=== PATIENT | female | born 1975 | race Caucasian/White ===

== ENCOUNTER 2018-07-27 11:11 | Day surgery (SDC) | payer OTHER ==
[~2018-07-27 11:11] MED LIST: Ketorolac 30 MG/ML SDV ONE; Midazolam 1 MG/ML 2 ML SDV ONE; Ondansetron 4 MG/2 ML SDV ONE; Propofol 200 MG/20 ML SDV ONE; Sodium Chloride 0.9% 10 ML Syringe FLUSH PRN; fentaNYL 100 MCG/2 ML SDV ONE
--- NOTE | 2018-07-27 11:31 | PCM.PREANE ---
Preanesthetic Assessment - Anesthesia/Transfusion/Family Hx Anesthesia History: Prior Anesthesia Without Reaction Family History of Anesthesia Reaction: No Transfusion History: No Prior Transfusion(s) - Physical Assessment NPO Status Date: 07/26/18 NPO Status Time: 10:00 Height: 1.7 m Weight: 65.317 kg ASA Class: 1 Mental Status: Alert & Oriented x3 Airway Class: Mallampati = 1 Dentition: Reports: Normal Dentition ROM/Head Extension: Full Lungs: Clear to Auscultation, Normal Respiratory Effort Cardiovascular: Regular Rate, Regular Rhythm, No Murmurs - Allergies Allergies/Adverse Reactions: Allergies Allergy/AdvReac Type Severity Reaction Status Date / Time No Known Allergies Allergy Verified 07/26/18 14:02 - Blood Product(s) Available: None - Anesthesia Plan Pre-Op Medication Ordered: None - Acknowledgements Anesthesia Type Planned: MAC Pt an Appropriate Candidate for the Planned Anesthesia: Yes Alternatives and Risks of Anesthesia Discussed w Pt/Guardian: Yes Pt/Guardian Understands and Agrees with Anesthesia Plan: Yes Additional Comments: Allerfic penicillin PreAnesthesia Questionnaire - Past Health History Medical/Surgical History: Denies Medical/Surgical History Cardiovascular History: Reports: None - Past Surgical History HEENT Surgical History: Reports: Tonsillectomy - HOME MEDS Home Medications: Home Meds . [No Known Home Meds] 07/26/18 [History] - CURRENT (IN HOUSE) MEDS Current Meds: Current Medications Lactated Ringer's (Ringers, Lactated) 1,000 mls @ 125 mls/hr IV ASDIRECTED OSITO Stop: 07/27/18 23:00 Lidocaine/Sodium Bicarbonate (Buffered Lidocaine 1% In Ns 8.4%) 0.25 ml IDERM ONETIME PRN PRN Reason: Prior to IV Start Stop: 07/27/18 18:00 Sodium Chloride (Saline Flush) 10 ml FLUSH ASDIRECTED PRN PRN Reason: Keep Vein Open Stop: 07/27/18 18:00 Discontinued Medications Fentanyl (Sublimaze) Confirm Administered Dose 100 mcg .ROUTE .STK-MED ONE Stop: 07/27/18 10:58 Ketorolac Tromethamine (Toradol) Confirm Administered Dose 30 mg .ROUTE .STK- MED ONE Stop: 07/27/18 11:00 Midazolam HCl (Versed 1 Mg/Ml) Confirm Administered Dose 2 mg .ROUTE .STK-MED ONE Stop: 07/27/18 10:58 Ondansetron HCl (Zofran) Confirm Administered Dose 4 mg .ROUTE .STK-MED ONE Stop: 07/27/18 11:00 Propofol (Diprivan 20 Ml) Confirm Administered Dose 200 mg .ROUTE .STK-MED ONE Stop: 07/27/18 10:58
[2018-07-27] MEDS: Lidocaine 1%/Sod Bicarbonate in NS 8.4% 1 ML Syringe IDERM PRN (11:35)
[2018-07-27] MEDS: Lactated Ringers 1,000 ML IV SCH (11:35)
[2018-07-27] MEDS ORDERED: Midazolam 1 MG/ML 2 ML SDV ONE (11:51)
[2018-07-27] MEDS ORDERED: ceFAZolin 1 GM Vial ONE ×2 (11:54)
[2018-07-27] MEDS ORDERED: Propofol 200 MG/20 ML SDV ONE (11:57)
[2018-07-27] MEDS ORDERED: Ibuprofen 600 MG Tab PO PRN (12:12)
--- NOTE | 2018-07-27 12:16 | PCM.OPNOTE ---
- General Post-Op/Procedure Note Date of Surgery/Procedure: 07/27/18 Operative Procedure(s): Dilation and suction curettage Findings: Uterus sounded to 13 cm. Endometrial curettings were consistent with approximately conception. No adnexal abnormalities were noted. Cervix was closed. There is no blood in the vaginal vault at the onset of the procedure. Pre Op Diagnosis: Miscarriage Post-Op Diagnosis: Same Anesthesia Technique: MAC Primary Surgeon: Riki Aquino Pathology: Endometrial curettings consistent with products of conception Fluid Replacement, Intraop: 900 EBL in mLs: 10 Complications: None Condition: Good Free Text/Narrative:: Surgery duration: 6 minutes The patient was taken to the operating room and placed in a supine position operating table. She received 2 g of Ancef preoperatively for infection prophylaxis and had sequential compression stockings in place for DVT prophylaxis. After adequate MAC was administered patient was placed in a dorsal lithotomy position. A weighted speculum was placed in the vagina. Cervix is found to be dilated to approximately 1 centimeters. Uterus was sounded to approximately 13 cm. It was found to be anterior and mid position. An 8 mm suction curette was then introduced in routine fashion the endometrial cavity was evacuated. Moderate amount tissue was obtained. Findings consistent with products of conception. A medium size sharp curet was introduced and very careful fashion the endometrial cavity was curetted. After curettage it appeared to be clear of any further tissue. The suction curet was then reintroduced and small of blood was removed. No further tissue was removed. This point the D&C was discontinued. The single-toothed tenaculum used to stabilize the anterior lip the cervix was removed. Blood was removed from the vagina with a stick sponge and the weighted speculum was removed from the vagina. MAC was reversed. The patient was discharged from the operating room in good condition.
--- NOTE | 2018-07-27 12:19 | PCM.POSTAN ---
POST ANESTHESIA ASSESSMENT - MENTAL STATUS Mental Status: Alert - RESPIRATORY Respiratory Status: Respiratory Rate WNL, Airway Patent, O2 Saturation Stable, Supplemental Oxygen - CARDIOVASCULAR CV Status: Pulse Rate WNL, Blood Pressure Stable - GASTROINTESTINAL GI Status: No Symptoms - POST OP HYDRATION Hydration Status: Adequate & Stable
--- NOTE | 2018-07-27 12:20 | PCM48HPAN ---
Post Anesthesia Note - EVALUATION WITHIN 48HRS OF ANESTHETIC Vital Signs in Normal Range: Yes Patient Participated in Evaluation: Yes Respiratory Function Stable: Yes Airway Patent: Yes Cardiovascular Function Stable: Yes Hydration Status Stable: Yes Pain Control Satisfactory: Yes Nausea and Vomiting Control Satisfactory: Yes Mental Status Recovered: Yes Resp Rate: 16
== END 2018-07-27 13:09 | disposition home or self-care (01) ==
LOC: JD.SDS 11:11
PROVIDERS: ATTEND Obstetrics & Gynecology
DX: O02.1 Missed abortion (principal); Z88.0 Allergy status to penicillin
CPT/HCPCS: 36415; 59820; 85025; 86850; 86900; 86901; J0690; J1885; J2250; J2405; J2704; J3010; J7120; 01965

== ENCOUNTER 2019-08-19 07:04 | Inpatient (IN) | payer OTHER ==
[2019-08-19] MEDS ORDERED: Sodium Chloride 0.9% 10 ML Syringe FLUSH PRN (07:18)
[2019-08-19] MEDS ORDERED: Lactated Ringers 1,000 ML IV SCH (07:30)
[2019-08-19] MEDS ORDERED: Oxytocin/Lactated Ringers 10 UNIT/1,000 ML BAG IV SCH (07:30)
[2019-08-19] MEDS ORDERED: Nalbuphine 10 MG/ML Syringe IVPUSH PRN (07:39)
[2019-08-19] MEDS: Clindamycin Phosphate in D5W 900 MG in Premix Bag 1 BAG IV SCH ×4 (08:30→16:00)
--- NOTE | 2019-08-19 13:54 | PCM.LDHP ---
<Esme Muñiz - Last Filed: 08/19/19 15:14> L&D History of Present Illness - General Date of Service: 08/19/19 Admit Problem/Dx: Patient Status Order with Admit Dx/Problem 08/19/19 07:18 Patient Status [ADT] Routine Admission Diagnosis/Problem Admission Diagnosis/Problem - History of Present Illness Introduction:: Gogo is a 44-year-old 6 para 4014 white female presenting at 39-1/7 weeks gestational age with an JENN of 08/25/2019 for elective induction of labor. Cervix upon admission is 2cm, 70% effaced, very soft, mid position, and -3 station. Procedure of induction of labor, its risks, benefits, alternatives of care were discussed in detail with the patient and her . They appear to understand and wish to proceed. [employer] CLE[employer]ER history: Onset of menarche for patient is unknown. She had cycles every 29 days. She was not using any control at time of conception. Her JENN of 08/25/2019 was set by a certain last menstrual period starting 11/18/2018. It was supported by 4 ultrasounds done during on 02/07/2019, 04/08/2019, 05/06/2019, and 06/03/2019. The 3 most recent ultrasounds were significant for internal debris in stomach. Patient denies any abnormal Pap smears, STIs, or other abnormalities. Her previous pregnancies include the followin. Female born 07/11/1999 at 39 weeks gestational age after 16 hours of labor - 6lbs 14oz in [place], [place]. Child's name is Nara. 2. Female infant born [birth year]2002 at 40 weeks gestational age after 8 hours of labor - 7lbs 0oz in [place], [place]. Child's name is Alejandra. 3. Male infant born 01/13/2003 at 40 weeks gestational age after 6 hours of labor - 7lbs 2oz in [place]. Child's name is Landon. 4. Male born 07/06/2007 at 40 weeks gestational age after 2 hours of labor. - 9lbs 0oz in [place]. Child's name is Donald. 5. Miscarriage 06/05/2018 at 6 weeks gestational age. D&C done for evacuation of the uterus. course: Patient was seen for first visit on 02/07/2019. Ultrasound done at that time showed a viable at 11-4/7 weeks gestational age. Ultrasound JENN correlated well with her LMP. She was seen on a very regular basis throughout the . Her vital signs remained stable and fundal height growth was appropriate throughout . Her weight gain was from 146 to 171.6 pounds for a 25.6 pound increase. Patient's group B strep screen was positive with sensitivity indicating that it is sensitive to clindamycin. Patient has been on and calcium supplements as well as iron 325mg tabs. Patient declined flu vaccine and genetic testing. She desires natural labor. She plans to breastfeed. Laboratory testing in : Blood is O+ with a negative antibody screen. Hemoglobin is 13.5g/dL and platelets are 284,000 at first visit. Rubella titer showed immunity. RPR nonreactive. Urine culture was suggestive of contamination. Hepatitis B surface antigen and HIV assays were both negative. Chlamydia and gonorrhea tests were negative. Second trimester hemoglobin was 12.4g/dL and platelets were 234,000. 1 hour GTT was normal at 91. Group B strep culture was positive on 08/07/2019 showing susceptibility to vancomycin and clindamycin. - Related Data Allergies/Adverse Reactions: Allergies Allergy/AdvReac Type Severity Reaction Status Date / Time penicillin G Allergy Cannot Verified 08/19/19 07:18 Remember Home Medications: Home Meds Calcium Carbonate/Vitamin D3 [Calcium 500 + Vit D 400] 1 tab PO DAILY 08/19/19 [History] Ferrous Sulfate [Iron] 325 mg PO DAILY 08/19/19 [History] Lactobacillus Combo No.10 [Probiotic] 1 tab PO DAILY 08/19/19 [History] Pnv No.95/Ferrous Fum/Folic AC [ Tablet] 1 each PO DAILY 08/19/19 [History] Past Medical History - Past Health History Medical/Surgical History: Denies Medical/Surgical History Cardiovascular History: Reports: None [employer] History: Reports: , Spontaneous - Past Surgical History HEENT Surgical History: Reports: Tonsillectomy Social & Family History - Family History Family Medical History: Noncontributory - Tobacco Use Smoking Status *Q: Never Smoker Second Hand Smoke Exposure: No - Caffeine Use Caffeine Use: Reports: None - Recreational Drug Use Recreational Drug Use: No H&P Review of Systems - Review of Systems: General: Reports: No Symptoms HEENT: Reports: No Symptoms Pulmonary: Reports: No Symptoms Cardiovascular: Reports: No Symptoms Gastrointestinal: Reports: No Symptoms Musculoskeletal: Reports: No Symptoms Skin: Reports: No Symptoms L&D Exam - Vital Signs Vital Signs: Last Vital Signs Temp 98.8 F 08/19/19 07:30 Pulse 79 08/19/19 07:30 Resp 16 08/19/19 07:30 BP 108/69 08/19/19 07:30 Pulse Ox 100 08/19/19 07:30 Weight: 79.379 kg - Exam Psychiatric Exam Comments: In general, patient is a well-developed, well-nourished female of stated age in no acute distress. On last evaluation, patient's blood pressure was 106/64, weight was 171.6 pounds, heart rate was 144. Pre- BMI was 22.1. Height is 5 feet 7 inches. Skin is warm and dry without lesions. HEENT and neck within normal limits. Lungs clear to auscultation in all lung parks. Cardiovascular exam shows regular rate and rhythm without murmurs. No peripheral edema. Abdomen has fundal height of 39cm. Baby is in vertex position. Neurological exam is grossly within normal limits. Orders Last 24hrs: Active Orders 24 hr Category Date Time Status Patient Status [ADT] Routine ADT 08/19/19 07:18 Active Communication Order [RC] ASDIRECTED Care 08/19/19 07:18 Active Communication Order [RC] ASDIRECTED Care 08/19/19 07:18 Active Communication Order [RC] ASDIRECTED Care 08/19/19 07:18 Active Monitoring [RC] INTERMITTENT Care 08/19/19 07:18 Active Non Stress Test [RC] PER UNIT ROUTINE Care 08/19/19 07:18 Active Notify Provider [RC] ASDIRECTED Care 08/19/19 07:18 Active Peripheral IV Care [RC] . DIRECTED Care 08/19/19 07:19 Active Vaginal Exam [RC] ASDIRECTED Care 08/19/19 07:18 Active Vital Signs [RC] ASDIRECTED Care 08/19/19 07:18 Active Regular Diet [DIET] Diet 08/19/19 Breakfast Active RAPID PLASMA REAGIN,RPR [CHEM] Routine Lab 08/19/19 07:55 Received Clindamycin Phosphate in D5W [Cleocin in D5W] 900 mg Med 08/19/19 08:00 Active Premix Bag 1 bag IV Q8H Lactated Ringers [Ringers, Lactated] 1,000 ml Med 08/19/19 07:30 Active IV ASDIRECTED Nalbuphine [Nubain] Med 08/19/19 07:39 Active 10 mg IVPUSH Q2H PRN Oxytocin/Lactated Ringers [Pitocin in LR 10 Units/1,000 Med 08/19/19 07:30 Active ML] 10 unit in 1,000 ml IV TITRATE Sodium Chloride 0.9% [Saline Flush] Med 08/19/19 07:18 Active 10 ml FLUSH ASDIRECTED PRN Peripheral IV Insertion Adult [OM.PC] Routine Oth 08/19/19 07:18 Ordered Medication Orders Oxytocin/Lactated Ringer's (Pitocin In Lr 10 Units/1,000 Ml) 10 unit in 1,000 mls @ 12 mls/hr IV TITRATE OSITO; Protocol Last Titration: 08/19/19 09:15 Dose: 6 munits/min, 36 mls/hr Documented by: MARCO A Titration: 08/19/19 08:45 Dose: 4 munits/min, 24 mls/hr Documented by: MARCO A Admin: 08/19/19 08:01 Dose: 2 munits/min, 12 mls/hr Documented by: MARCO A Lactated Ringer's (Ringers, Lactated) 1,000 mls @ 40 mls/hr IV ASDIRECTED OSITO Last Admin: 08/19/19 08:01 Dose: 40 mls/hr Documented by: MARCO A Clindamycin Phosphate 900 mg/ (Premix) 50 mls @ 100 mls/hr IV Q8H OSITO Last Admin: 08/19/19 08:30 Dose: 100 mls/hr Documented by: ALISSAKAJUAN CARLOS Nalbuphine HCl (Nubain) 10 mg IVPUSH Q2H PRN PRN Reason: Pain Sodium Chloride (Saline Flush) 10 ml FLUSH ASDIRECTED PRN PRN Reason: Keep Vein Open Assessment/Plan Comment:: Assessment: 1. female at 39-1/7 weeks gestation 2. group B strep positive - susceptible to clindamycin - patient has penicillin allergy 3. induction of labor by Pitocin and AROM 4. risk factors: mother's age, distance from hospital, group B strep status 5. patient okay with epidural Plan: 1. induction of labor via Pitocin and AROM 2. epidural PRN as patient wishes 3. patient plans to breastfeed 4. group B strep prophylaxis with antibiotics <Riki Aquino F - Last Filed: 08/19/19 17:16> L&D History of Present Illness - General Admit Problem/Dx: Patient Status Order with Admit Dx/Problem 08/19/19 07:18 Patient Status [ADT] Routine Admission Diagnosis/Problem Admission Diagnosis/Problem H&P Review of Systems - Review of Systems: Review Of Systems: See Below L&D Exam - Exam Exam: See Below - Vital Signs Vital Signs: Last Vital Signs Temp 37.1 C 08/19/19 07:30 Pulse 79 08/19/19 07:30 Resp 16 08/19/19 07:30 BP 108/69 08/19/19 07:30 Pulse Ox 100 08/19/19 07:30 Problem List Initiated/Reviewed/Updated: Yes Orders Last 24hrs: Active Orders 24 hr Category Date Time Status Patient Status [ADT] Routine ADT 08/19/19 07:18 Active Communication Order [RC] ASDIRECTED Care 08/19/19 07:18 Active Communication Order [RC] ASDIRECTED Care 08/19/19 07:18 Active Communication Order [RC] ASDIRECTED Care 08/19/19 07:18 Active Monitoring [RC] INTERMITTENT Care 08/19/19 07:18 Active Non Stress Test [RC] PER UNIT ROUTINE Care 08/19/19 07:18 Active Notify Provider [RC] ASDIRECTED Care 08/19/19 07:18 Active Peripheral IV Care [RC] . DIRECTED Care 08/19/19 07:19 Active Vaginal Exam [RC] ASDIRECTED Care 08/19/19 07:18 Active Vital Signs [RC] ASDIRECTED Care 08/19/19 07:18 Active Regular Diet [DIET] Diet 08/19/19 Breakfast Active RAPID PLASMA REAGIN,RPR [CHEM] Routine Lab 08/19/19 07:55 Received Clindamycin Phosphate in D5W [Cleocin in D5W] 900 mg Med 08/19/19 08:00 Active Premix Bag 1 bag IV Q8H Lactated Ringers [Ringers, Lactated] 1,000 ml Med 08/19/19 07:30 Active IV ASDIRECTED Nalbuphine [Nubain] Med 08/19/19 07:39 Active 10 mg IVPUSH Q2H PRN Oxytocin/Lactated Ringers [Pitocin in LR 10 Units/1,000 Med 08/19/19 07:30 Active ML] 10 unit in 1,000 ml IV TITRATE Sodium Chloride 0.9% [Saline Flush] Med 08/19/19 07:18 Active 10 ml FLUSH ASDIRECTED PRN Peripheral IV Insertion Adult [OM.PC] Routine Oth 08/19/19 07:18 Ordered Medication Orders Oxytocin/Lactated Ringer's (Pitocin In Lr 10 Units/1,000 Ml) 10 unit in 1,000 mls @ 12 mls/hr IV TITRATE OSITO; Protocol Last Titration: 08/19/19 09:15 Dose: 6 munits/min, 36 mls/hr Documented by: MARCO A Titration: 08/19/19 08:45 Dose: 4 munits/min, 24 mls/hr Documented by: MARCO A Admin: 08/19/19 08:01 Dose: 2 munits/min, 12 mls/hr Documented by: MARCO A Lactated Ringer's (Ringers, Lactated) 1,000 mls @ 40 mls/hr IV ASDIRECTED OSITO Last Admin: 08/19/19 08:01 Dose: 40 mls/hr Documented by: MARCO A Clindamycin Phosphate 900 mg/ (Premix) 50 mls @ 100 mls/hr IV Q8H OSITO Last Admin: 08/19/19 16:00 Dose: 100 mls/hr Documented by: MARCO A Infusion: 08/19/19 09:00 Dose: 100 mls/hr Documented by: MARCO A Admin: 08/19/19 08:30 Dose: 100 mls/hr Documented by: MARCO A Nalbuphine HCl (Nubain) 10 mg IVPUSH Q2H PRN PRN Reason: Pain Sodium Chloride (Saline Flush) 10 ml FLUSH ASDIRECTED PRN PRN Reason: Keep Vein Open
--- NOTE | 2019-08-19 17:26 | PCM.SN.2 ---
- Free Text/Narrative Note: Delivery note: Gogo is a 44-year-old 6 para 4014 white female presenting at 39-1/7 weeks gestational age with an JENN of 08/25/2019 for elective induction of labor.The patient underwent Pitocin induction of labor and after approximately 4 hours brought the head down well against the cervix. Artificial rupture membranes was then undertaken with resultant clear amniotic fluid. After this the contraction pattern progressed with intensity and frequency of labor increasing. The patient progressed to complete cervical dilation by approximately 1700 hrs. She pushed over just 2 contractions and at 1700 hrs. on 08/19/2019 delivered a viable, coleman, female infant with Apgars 8/9, a length of 19.0 inches and a weight of 3470 g grams (7 pounds, 10 ounces) in a right occiput anterior position over an intact perineum. Baby was placed on mom's abdomen, was dried with a warm blanket and had nose and mouth bulb suctioned. Pitocin was increased to 500 mL IV per hour to facilitate increased uterine tone and decrease likelihood of bleeding. Cord was obtained. The umbilical cord had 3 vessels within it. The placenta delivered at 1706 hrs. in a Hall presentation. It appeared intact and complete and was discarded per patient desire. Estimated blood loss was approximately 100 mL. Patient plans to breast-feed. Condition: Good
[2019-08-19] MEDS ORDERED: Acetaminophen 325 MG Tab PO PRN (18:15)
[2019-08-19] MEDS ORDERED: Witch Hazel Medicated Pads 40/Jar TOP PRN (18:15)
[2019-08-19] MEDS ORDERED: Benzocaine/Menthol 20%-0.5% Spray 56 GM Canister TOP PRN (18:15)
[2019-08-19] MEDS ORDERED: Docusate Sodium 100 MG Cap PO PRN (18:15)
[2019-08-19] MEDS: Ibuprofen 600 MG Tab PO PRN ×2 (18:36→22:41)
[2019-08-20] MEDS: Ibuprofen 600 MG Tab PO PRN ×3 (03:19→12:09)
[2019-08-20] MEDS: Prenatal Multivitamin with Calcium/Folic Acid/Iron Tab PO SCH (09:25)
[2019-08-21] MEDS: Ibuprofen 600 MG Tab PO PRN (03:07)
--- NOTE | 2019-08-21 05:46 | PCM.DCSUM1 ---
Discharge Summary - Hospital Course Free Text/Narrative:: Gogo is a 44-year-old 6 para 4014 white female presenting at 39-1/7 weeks gestational age with an JENN of 08/25/2019 for elective induction of labor.The patient underwent Pitocin induction of labor and after approximately 4 hours brought the head down well against the cervix. Artificial rupture membranes was then undertaken with resultant clear amniotic fluid. After this the contraction pattern progressed with intensity and frequency of labor inc reasing. The patient progressed to complete cervical dilation by approximately 1700 hrs. She pushed over just 2 contractions and at 1700 hrs. on 08/19/2019 delivered a viable, co[place], female with Apgars 8/9, a length of 19.0 inches and a weight of 3470 g grams (7 pounds, 10 ounces) in a right occiput anterior position over an intact perineum. Baby was placed on mom's abdomen, was dried with a warm blanket and had nose and mouth bulb suctioned. Pitocin was increased to 500 mL IV per hour to facilitate increased uterine tone and decrease likelihood of bleeding. Cord was obtained. The umbilical cord had 3 vessels within it. The placenta delivered at 1706 hrs. in a Hall presentation. It appeared intact and complete and was discarded per patient desire. Estimated blood loss was approximately 100 mL. patient is doing fine. Breast-feeding is going well. Follow-up of the ultrasound finding of debris in the stomach showed no abnormalities. Babies been eating well. Mother has minimal lochia, is voiding well and is ambulating without concerns. She is desiring discharge home today. Condition: Good Diagnosis: Stroke: No - Discharge Data Discharge Date: 08/21/19 Discharge Disposition: Home, Self-Care 01 Condition: Good - Referral to Home Health Primary Care Physician: Riki Aquino MD - Patient Instructions Diet: Regular Diet as Tolerated (Nursing diet with increased calories and calcium as recommended) Activity: As Tolerated (No intercourse or tampons until bleeding resolves) Driving: May Drive Today Showering/Bathing: May Shower (May take a bath) Notify Provider of: Fever, Increased Pain, Swelling and Redness, Nausea and/or Vomiting - Discharge Plan Home Medications: Home Meds Calcium Carbonate/Vitamin D3 [Calcium 500 + Vit D 400] 1 tab PO DAILY 08/19/19 [History] Ferrous Sulfate [Iron] 325 mg PO DAILY 08/19/19 [History] Lactobacillus Combo No.10 [Probiotic] 1 tab PO DAILY 08/19/19 [History] Pnv No.95/Ferrous Fum/Folic AC [ Tablet] 1 each PO DAILY 08/19/19 [History] Acetaminophen [Tylenol] 650 mg PO Q4H PRN tablet 08/21/19 [Rx] Ibuprofen [Motrin] 600 mg PO Q4H PRN tablet 08/21/19 [Rx] Referrals: Riki Aquino MD [Primary Care Provider] - (Return to clinic�Dr. Aquino or Ramonita woods nurse practitioner�2-4 weeks.) - Discharge Summary/Plan Comment DC Time >30 min.: No Discharge Summary/Plan Comment: Discharge instructions: 1. Discharge home 2. Diet, activity and follow-up discussed with patient. Recommend nursing diet with increased calories and calcium. 3. Precautions given concern increased pain, bleeding, temperature, signs/symptoms of DVT/PE. 4. Medications per home medication was printed, discussed with and given to the patient. 5. [facility] Aquino [facility]. Diagnosis: Term -delivered Condition: Good - Patient Data Vitals - Most Recent: Last Vital Signs Temp 36.7 C 08/21/19 03:09 Pulse 50 L 08/21/19 03:09 Resp 16 08/21/19 03:09 BP 115/70 08/21/19 03:09 Pulse Ox 96 08/21/19 03:09 Weight - Most Recent: 79.379 kg I&O - Last 24 hours: Intake & Output 08/20/19 08/20/19 08/21/19 14:59 22:59 06:59 Intake Total 120 240 Balance 120 240 Med Orders - Current: Current Medications Acetaminophen (Tylenol) 650 mg PO Q4H PRN PRN Reason: mild pain or fever Benzocaine/Menthol (Dermoplast Pain Relief [place]) 0 gm TOP ASDIRECTED PRN PRN Reason: Perineal Comfort Measure Last Admin: 08/19/19 18:37 Dose: 1 can Documented by: Docusate Sodium (Colace) 100 mg PO BID PRN PRN Reason: Constipation Last Admin: 08/21/19 03:07 Dose: 100 mg Documented by: Ibuprofen (Motrin) 600 mg PO Q4H PRN PRN Reason: Mild pain or fever Last Admin: 08/21/19 03:07 Dose: 600 mg Documented by: Luisa Multivit/[place]/Iron/Folic Ac ( Plus Iron) 1 each PO DAILY OSITO Last Admin: 08/20/19 09:25 Dose: 1 each Documented by: Bossman Robles ([facility]) 1 pad TOP ASDIRECTED PRN PRN Reason: Perineal Comfort Measure Last Admin: 08/19/19 18:37 Dose: 1 tub Documented by: Discontinued Medications Oxytocin/Lactated Ringer's (Pitocin In Lr 10 Units/1,000 Ml) 10 unit in 1,000 mls @ 12 mls/hr IV TITRATE OSITO; Protocol Last Titration: 08/19/19 17:45 Dose: 41.67 munits/min, 250.02 mls/hr Documented by: Lactated Ringer's (Ringers, Lactated) 1,000 mls @ 40 mls/hr IV ASDIRECTED OSITO Last Admin: 08/19/19 08:01 Dose: 40 mls/hr Documented by: Clindamycin Phosphate 900 mg/ (Premix) 50 mls @ 100 mls/hr IV Q8H OSITO Last Admin: 08/19/19 16:00 Dose: 100 mls/hr Documented by: Nalbuphine HCl (Nubain) 10 mg IVPUSH Q2H PRN PRN Reason: Pain Sodium Chloride (Saline Flush) 10 ml FLUSH ASDIRECTED PRN PRN Reason: Keep Vein Open
[2019-08-21] MEDS: Prenatal Multivitamin with Calcium/Folic Acid/Iron Tab PO SCH (14:48)
== END 2019-08-21 11:40 | disposition home or self-care (01) | DRG 807 ==
LOC: JD.OB 07:04 → OBSVTOIN 17:00 → JD.OB 17:01
PROVIDERS: ADMIT Obstetrics & Gynecology; ATTEND Obstetrics & Gynecology
PROC: 10E0XZZ Delivery of Products of Conception, External Approach (ICD-10-PCS; principal; 2019-08-19)
PROC: 10907ZC Drainage of Amniotic Fluid, Therapeutic from Products of Conception, Via Natural or Artificial Opening (ICD-10-PCS; 2019-08-19)
PROC: 3E033VJ Introduction of Other Hormone into Peripheral Vein, Percutaneous Approach (ICD-10-PCS; 2019-08-19)
DX: O99.824 Streptococcus B carrier state complicating childbirth (principal); Z37.0 Single live birth; Z3A.39 39 weeks gestation of pregnancy
CPT/HCPCS: 36415; 59025; 59409; 86592; A9270-GY; J2590; J3490; J7120

== ENCOUNTER 2019-08-30 16:06 | Day surgery (SDC) | payer OTHER ==
[2019-08-30] MEDS ORDERED: Sodium Chloride 0.9% 10 ML Syringe FLUSH PRN (16:47)
--- NOTE | 2019-08-30 16:51 | EDM.PDOC ---
ED HPI GENERAL MEDICAL PROBLEM - General Chief Complaint: Abdominal Pain Stated Complaint: R SIDE ABDOMINAL PAIN/ 1 WEEK Time Seen by Provider: 08/30/19 16:48 Source of Information: Reports: Patient History Limitations: Reports: No Limitations - History of Present Illness INITIAL COMMENTS - FREE TEXT/NARRATIVE: Is an unfortunate 44-year-old female who presents emergency department today with complaint of right lower quadrant abdominal pain. Patient reports that she is status post 1 week [address] delivery by [address] Aquino, and has had pain of the right lower quadrant ever since. The patient reports that the pain is worsened today and she reports that the pain is a crampy type pain that is worse with range of motion at which time the pain becomes sharp. Does have bright red blood lochia denies dysuria no frequency no fever no chills no chest pain no shortness of breath no nausea no vomiting tolerating p.o. food and fluids well Treatments PRINCIPAL TECHNICAL SPECIALIST: Reports: Other (see below) Other Treatments PRINCIPAL TECHNICAL SPECIALIST: motrin Right Abdomen Pain Score (Numeric/FACES): 4 - Related Data Allergies Allergy/AdvReac Type Severity Reaction Status Date / Time penicillin G Allergy Cannot Verified 08/19/19 07:18 Remember Home Meds: Home Meds Calcium Carbonate/Vitamin D3 [Calcium 500 + Vit D 400] 1 tab PO DAILY 08/19/19 [History] Ferrous Sulfate [Iron] 325 mg PO DAILY 08/19/19 [History] Lactobacillus Combo No.10 [Probiotic] 1 tab PO DAILY 08/19/19 [History] Pnv No.95/Ferrous Fum/Folic AC [ Tablet] 1 each PO DAILY 08/19/19 [History] Acetaminophen [Tylenol] 650 mg PO Q4H PRN tablet 08/21/19 [Rx] Ibuprofen [Motrin] 600 mg PO Q4H PRN tablet 08/21/19 [Rx] Past Medical History - Past Health History Medical/Surgical History: Denies Medical/Surgical History Cardiovascular History: Reports: None 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 Denies: Melena, Nausea, Vomiting : Reports: Other (+ Bright red lochia) ED EXAM, GI/ABD - Physical Exam Exam: See Below Exam Limited By: No Limitations General Appearance: Alert, WD/WN, Mild Distress Throat/Mouth: Normal Inspection, Normal Lips, Normal Teeth, Normal Gums, Normal Oropharynx, Normal Voice, No Airway Compromise Neck: Normal Inspection, Supple, Non-Tender, Full Range of Motion Respiratory/Chest: No Respiratory Distress, Lungs Clear, Normal Breath Sounds, No Accessory Muscle Use, Chest Non-Tender Cardiovascular: Normal Peripheral Pulses, Regular Rate, Rhythm, No Edema, No Gallop, No JVD, No Murmur, No Rub GI/Abdominal Exam: Normal Bowel Sounds, Soft, Tender (mild RLQ) Back Exam: Normal Inspection, Full Range of Motion, NT Extremities: Normal Inspection, No Pedal Edema Neurological: Alert, Oriented Skin Exam: Warm, Dry Course - Vital Signs Last Recorded V/S: Last Vital Signs Temp 98.4 F 08/30/19 16:37 Pulse 64 08/30/19 16:37 Resp 20 08/30/19 16:37 BP 112/78 08/30/19 16:37 Pulse Ox 97 08/30/19 16:37 - Orders/Labs/Meds Orders: Active Orders 24 hr Category Date Time Status Abdomen Pelvis wo Cont [CT] Stat Exams 08/30/19 16:47 Taken CBC WITH AUTO DIFF [HEME] Stat Lab 08/30/19 16:55 Results COMPREHENSIVE METABOLIC PN,CMP [CHEM] Stat Lab 08/30/19 16:55 Received CULTURE URINE [RM] Stat Lab 08/30/19 17:00 Received Sodium Chloride 0.9% [Saline Flush] Med 08/30/19 16:47 Active 10 ml FLUSH ASDIRECTED PRN Saline Lock Insert [OM.PC] Stat Oth 08/30/19 16:46 Ordered Medication Orders Sodium Chloride (Saline Flush) 10 ml FLUSH ASDIRECTED PRN PRN Reason: Keep Vein Open Last Admin: 08/30/19 17:07 Dose: 10 ml Documented by: ELÍAS Labs: Laboratory Tests 08/30/19 08/30/19 Range/Units 16:55 17:00 WBC 11.96 H (3.98-10.04) K/mm3 RBC 5.02 (3.98-5.22) M/mm3 Hgb 15.3 D (11.2-15.7) gm/dl Hct 46.9 H (34.1-44.9) % MCV 93.4 (79.4-94.8) fl MCH 30.5 (25.6-32.2) pg MCHC 32.6 (32.2-35.5) g/dl RDW Std Deviation 45.3 (36.4-46.3) fL Plt Count 266 (182-369) K/mm3 MPV 9.9 (9.4-12.3) fl Neut % (Auto) 79.5 H (34.0-71.1) % Lymph % (Auto) 12.7 L (19.3-51.7) % [place] % (Auto) 5.8 (4.7-12.5) % Eos % (Auto) 1.6 (0.7-5.8) Baso % (Auto) 0.3 (0.1-1.2) % Neut # (Auto) 9.52 H (1.56-6.13) K/mm3 Lymph # (Auto) 1.52 (1.18-3.74) K/mm3 [place] # (Auto) 0.69 H (0.24-0.36) K/mm3 Eos # (Auto) 0.19 (0.04-0.36) K/mm3 Baso # (Auto) 0.03 (0.01-0.08) K/mm3 Urine Color Yellow (Yellow) Urine Appearance Clear (Clear) Urine pH 6.0 (5.0-8.0) Ur Specific [place] 1.020 (1.005-1.030) Urine Protein 1+ H (Negative) Urine Glucose (UA) Negative (Negative) Urine Ketones Negative (Negative) Urine Occult Blood 3+ H (Negative) Urine Nitrite Negative (Negative) Urine Bilirubin Negative (Negative) Urine Urobilinogen 0.2 (0.2-1.0) Ur Leukocyte Esterase 1+ H (Negative) Urine RBC 5-10 H (0-5) /hpf Urine WBC 10-20 H (0-5) /hpf Ur Squamous Epith Cells 20-30 H (0-5) /hpf Urine Bacteria Few (FEW) /hpf Urine Mucus Not seen (FEW) /hpf Meds: Medications Generic Name Dose Route Start Last Admin Trade Name Davidq PRN Reason Stop Dose Admin Sodium Chloride 10 ml 08/30/19 16:47 08/30/19 17:07 Saline Flush FLUSH 10 ml ASDIRECTED PRN Administration Keep Vein Open - Re-Assessments/Exams Free Text/Narrative Re-Assessment/Exam: 08/30/19 18:04 Urine shows 1+ leuk est and 10-20 WBCs Free Text/Narrative Re-Assessment/Exam: 08/30/19 18:[address] Garzon will come and see the patient expect to take the patient to the OR tonight at 1930, discussed with patient and family and they verbalized understanding Departure - Departure Time of Disposition: 18:17 Disposition: Refer to Observation Clinical Impression: Appendicitis Qualifiers: Appendicitis type: acute appendicitis Acute appendicitis type: unspecified acute appendicitis type Qualified Code(s): K35.80 - Unspecified acute appendicitis - Discharge Information Referrals: PCP,None [Primary Care Provider] - Forms: ED Department Discharge Sepsis Event Note (ED) - Evaluation Sepsis Screening Result: No Definite Risk - Focused Exam Vital Signs: Vital Signs Temp Pulse Resp BP Pulse Ox 08/30/19 16:37 98.4 F 64 20 112/78 97 - My Orders Last 24 Hours: My Active Orders 08/30/19 16:46 Saline Lock Insert [OM.PC] Stat 08/30/19 16:47 Abdomen Pelvis wo Cont [CT] Stat Sodium Chloride 0.9% [Saline Flush] 10 ml FLUSH ASDIRECTED PRN 08/30/19 16:55 CBC WITH AUTO DIFF [HEME] Stat COMPREHENSIVE METABOLIC PN,CMP [CHEM] Stat 08/30/19 17:00 CULTURE URINE [RM] Stat - Assessment/Plan Last 24 Hours: My Active Orders 08/30/19 16:46 Saline Lock Insert [OM.PC] Stat 08/30/19 16:47 Abdomen Pelvis wo Cont [CT] Stat Sodium Chloride 0.9% [Saline Flush] 10 ml FLUSH ASDIRECTED PRN 08/30/19 16:55 CBC WITH AUTO DIFF [HEME] Stat COMPREHENSIVE METABOLIC PN,CMP [CHEM] Stat 08/30/19 17:00 CULTURE URINE [RM] Stat
[2019-08-30] MEDS ORDERED: metroNIDAZOLE/Normal Saline 500 MG in Premix Bag 1 BAG IV ONE (18:18)
[2019-08-30] MEDS ORDERED: Levofloxacin/Dextrose 5%-Water 500 MG in Premix Bag 1 BAG IV ONE (18:18)
--- NOTE | 2019-08-30 19:16 | PCM.PREANE ---
Preanesthetic Assessment - Anesthesia/Transfusion/Family Hx Anesthesia History: Prior Anesthesia Without Reaction Transfusion History: No Prior Transfusion(s) - Review of Systems General: No Symptoms Pulmonary: No Symptoms Cardiovascular: No Symptoms Gastrointestinal: Abdominal Pain, Nausea Neurological: No Symptoms Other: Reports: None - Physical Assessment NPO Status Date: 08/30/19 NPO Status Time: 13:00 Vital Signs: Last Vital Signs Temp 98.4 F 08/30/19 16:37 Pulse 64 08/30/19 16:37 Resp 20 08/30/19 16:37 BP 112/78 08/30/19 16:37 Pulse Ox 97 08/30/19 16:37 Height: 1.7 m Weight: 68.946 kg ASA Class: 1E Mental Status: Alert & Oriented x3 Airway Class: Mallampati = 1 Dentition: Reports: Normal Dentition Thyro-Mental Finger Breadths: 3 Mouth Opening Finger Breadths: 3 ROM/Head Extension: Full Lungs: Clear to Auscultation, Normal Respiratory Effort Cardiovascular: Regular Rate, Regular Rhythm - Lab Values: Laboratory Last Values WBC 11.96 K/mm3 (3.98-10.04) H 08/30/19 16:55 RBC 5.02 M/mm3 (3.98-5.22) 08/30/19 16:55 Hgb 15.3 gm/dl (11.2-15.7) D 08/30/19 16:55 Hct 46.9 % (34.1-44.9) H 08/30/19 16:55 MCV 93.4 fl (79.4-94.8) 08/30/19 16:55 MCH 30.5 pg (25.6-32.2) 08/30/19 16:55 MCHC 32.6 g/dl (32.2-35.5) 08/30/19 16:55 RDW Std Deviation 45.3 fL (36.4-46.3) 08/30/19 16:55 Plt Count 266 K/mm3 (182-369) 08/30/19 16:55 MPV 9.9 fl (9.4-12.3) 08/30/19 16:55 Neut % (Auto) 79.5 % (34.0-71.1) H 08/30/19 16:55 Lymph % (Auto) 12.7 % (19.3-51.7) L 08/30/19 16:55 [place] % (Auto) 5.8 % (4.7-12.5) 08/30/19 16:55 Eos % (Auto) 1.6 (0.7-5.8) 08/30/19 16:55 Baso % (Auto) 0.3 % (0.1-1.2) 08/30/19 16:55 Neut # (Auto) 9.52 K/mm3 (1.56-6.13) H 08/30/19 16:55 Lymph # (Auto) 1.52 K/mm3 (1.18-3.74) 08/30/19 16:55 [place] # (Auto) 0.69 K/mm3 (0.24-0.36) H 08/30/19 16:55 Eos # (Auto) 0.19 K/mm3 (0.04-0.36) 08/30/19 16:55 Baso # (Auto) 0.03 K/mm3 (0.01-0.08) 08/30/19 16:55 Manual Slide Review Normal smear 08/30/19 16:55 Sodium 140 mEq/L (136-145) 08/30/19 16:55 Potassium 3.9 mEq/L (3.5-5.1) 08/30/19 16:55 Chloride 105 mEq/L (98-107) 08/30/19 16:55 Carbon Dioxide 27 mEq/L (21-32) 08/30/19 16:55 Anion Gap 11.9 (5-15) 08/30/19 16:55 BUN 16 mg/dL (7-18) 08/30/19 16:55 Creatinine 0.8 mg/dL (0.55-1.02) 08/30/19 16:55 Est Cr Clr Drug Dosing 88.18 mL/min 08/30/19 16:55 Estimated GFR (MDRD) > 60 mL/min (>60) 08/30/19 16:55 BUN/Creatinine Ratio 20.0 (14-18) H 08/30/19 16:55 Glucose 88 mg/dL (74-106) 08/30/19 16:55 Calcium 9.7 mg/dL (8.5-10.1) 08/30/19 16:55 Total Bilirubin 1.9 mg/dL (0.2-1.0) H 08/30/19 16:55 AST 21 U/L (15-37) 08/30/19 16:55 ALT 44 U/L (14-59) 08/30/19 16:55 Alkaline Phosphatase 109 U/L (46-116) 08/30/19 16:55 Total Protein 6.9 g/dl (6.4-8.2) 08/30/19 16:55 Albumin 3.4 g/dl (3.4-5.0) 08/30/19 16:55 Globulin 3.5 gm/dL 08/30/19 16:55 Albumin/Globulin Ratio 1.0 (1-2) 08/30/19 16:55 Urine Color Yellow (Yellow) 08/30/19 17:00 Urine Appearance Clear (Clear) 08/30/19 17:00 Urine pH 6.0 (5.0-8.0) 08/30/19 17:00 Ur Specific [place] 1.020 (1.005-1.030) 08/30/19 17:00 Urine Protein 1+ (Negative) H 08/30/19 17:00 Urine Glucose (UA) Negative (Negative) 08/30/19 17:00 Urine Ketones Negative (Negative) 08/30/19 17:00 Urine Occult Blood 3+ (Negative) H 08/30/19 17:00 Urine Nitrite Negative (Negative) 08/30/19 17:00 Urine Bilirubin Negative (Negative) 08/30/19 17:00 Urine Urobilinogen 0.2 (0.2-1.0) 08/30/19 17:00 Ur Leukocyte Esterase 1+ (Negative) H 08/30/19 17:00 Urine RBC 5-10 /hpf (0-5) H 08/30/19 17:00 Urine WBC 10-20 /hpf (0-5) H 08/30/19 17:00 Ur Squamous Epith Cells 20-30 /hpf (0-5) H 08/30/19 17:00 Urine Bacteria Few /hpf (FEW) 08/30/19 17:00 Urine Mucus Not seen /hpf (FEW) 08/30/19 17:00 - Allergies Allergies/Adverse Reactions: Allergies Allergy/AdvReac Type Severity Reaction Status Date / Time penicillin G Allergy Cannot Verified 08/19/19 07:18 Remember - Acknowledgements Anesthesia Type Planned: General Anesthesia Pt an Appropriate Candidate for the Planned Anesthesia: Yes Alternatives and Risks of Anesthesia Discussed w Pt/Guardian: Yes Pt/Guardian Understands and Agrees with Anesthesia Plan: Yes PreAnesthesia Questionnaire - Past Health History Medical/Surgical History: Denies Medical/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 History 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: , 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 - Past Surgical History HEENT Surgical History: Reports: Tonsillectomy Female Surgical History: Reports: Other (See Below) Other Female Surgeries/Procedures: vag delivery 08-19-19 - SUBSTANCE USE Smoking Status *Q: Never Smoker Recreational Drug Use History: No - HOME MEDS Home Medications: Home Meds Calcium Carbonate/Vitamin D3 [Calcium 500 + Vit D 400] 1 tab PO DAILY 08/19/19 [History] Ferrous Sulfate [Iron] 325 mg PO DAILY 08/19/19 [History] Lactobacillus Combo No.10 [Probiotic] 1 tab PO DAILY 08/19/19 [History] Pnv No.95/Ferrous Fum/Folic AC [ Tablet] 1 each PO DAILY 08/19/19 [History] Acetaminophen [Tylenol] 650 mg PO Q4H PRN tablet 08/21/19 [Rx] Ibuprofen [Motrin] 600 mg PO Q4H PRN tablet 08/21/19 [Rx] - CURRENT (IN HOUSE) MEDS Current Meds: Current Medications Metronidazole 500 mg/ Premix 100 mls @ 100 mls/hr IV ONETIME ONE Stop: 08/30/19 19:17 Last Admin: 08/30/19 18:37 Dose: 100 mls/hr Documented by: Levofloxacin/Dextrose 500 mg/ (Premix) 100 mls @ 100 mls/hr IV ONETIME ONE Stop: 08/30/19 19:17 Sodium Chloride (Saline Flush) 10 ml FLUSH ASDIRECTED PRN PRN Reason: Keep Vein Open Last Admin: 08/30/19 17:07 Dose: 10 ml Documented by: Discontinued Medications Bupivacaine HCl/Epinephrine Bitart (Marcaine 0.5%/Epinephrine 1:200,000) Confirm Administered Dose 50 ml .ROUTE .STK-MED ONE Stop: 08/30/19 18:52 Lidocaine/Epinephrine (Xylocaine 1% With Epinephrine 1:100,000) Confirm Administered Dose 40 ml .ROUTE .STK-MED ONE Stop: 08/30/19 18:52
[2019-08-30] MEDS: Bupivacaine 0.5%/EPINEPHrine 1:200,000 50 ML MDV ONE ×2 (19:21→20:05)
[2019-08-30] MEDS: Lidocaine 1% with EPINEPHrine 1:100,000 20 ML MDV ONE ×2 (19:22→20:05)
[2019-08-30] MEDS ORDERED: Propofol 200 MG/20 ML SDV ONE (19:22)
[2019-08-30] MEDS ORDERED: Rocuronium 50 MG/5 ML Vial ONE (19:22)
[2019-08-30] MEDS ORDERED: Midazolam 1 MG/ML 2 ML SDV ONE (19:22)
[2019-08-30] MEDS ORDERED: fentaNYL 250 MCG/5 ML SDV ONE (19:23)
[2019-08-30] MEDS ORDERED: Succinylcholine/Sod PF 100 MG/5 ML SYRINGE IV ONE (19:27)
[2019-08-30] MEDS ORDERED: Ondansetron 4 MG/2 ML SDV ONE (19:29)
[2019-08-30] MEDS ORDERED: Dexamethasone 4 MG/ML 5 ML MDV ONE (19:30)
--- NOTE | 2019-08-30 19:50 | PCM.HP.2 ---
H&P History of Present Illness - General Date of Service: 08/30/19 Admit Problem/Dx: Admission Diagnosis/Problem Admission Diagnosis/Problem Acute appendicitis Source of Information: Patient, Provider History Limitations: Reports: No Limitations - History of Present Illness Initial Comments - Free Text/Narative: The patient is a 44-year-old female who presents with right lower quadrant abdominal pain for the past week. Is suddenly worsened and today became severe enough that she came in to seek treatment. She has had looser and more frequent stools. She reports decreased appetite. She denies any fever. She is 7 days status post a vaginal delivery of a female infant. She is breast- feeding at this time. In the emergency department she had work-up with laboratory and CT evaluation. She has an elevated white blood cell count of 11.9K. She also had a CT abdome n/pelvis findings of a dilated appendix with a fecalith. Right Abdomen Pain Score (Numeric/FACES): 4 - Related Data Allergies/Adverse Reactions: Allergies Allergy/AdvReac Type Severity Reaction Status Date / Time penicillin G Allergy Cannot Verified 08/19/19 07:18 Remember Home Medications: Home Meds Calcium Carbonate/Vitamin D3 [Calcium 500 + Vit D 400] 1 tab PO DAILY 08/19/19 [History] Ferrous Sulfate [Iron] 325 mg PO DAILY 08/19/19 [History] Lactobacillus Combo No.10 [Probiotic] 1 tab PO DAILY 08/19/19 [History] Pnv No.95/Ferrous Fum/Folic AC [ Tablet] 1 each PO DAILY 08/19/19 [History] Acetaminophen [Tylenol] 650 mg PO Q4H PRN tablet 08/21/19 [Rx] Ibuprofen [Motrin] 600 mg PO Q4H PRN tablet 08/21/19 [Rx] Past Medical History - Past Health History Medical/Surgical History: Denies Medical/Surgical History Cardiovascular History: Reports: None 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: , 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 - Past Surgical History HEENT Surgical History: Reports: Tonsillectomy Female Surgical History: Reports: Other (See Below) Other Female Surgeries/Procedures: vag delivery 08-19-19 Social & Family History - Family History Cardiac: Reports: High Cholesterol - Tobacco Use Smoking Status *Q: Never Smoker - Caffeine Use Caffeine Use: Reports: None - Recreational Drug Use Recreational Drug Use: No H&P Review of Systems - Review of Systems: Review Of Systems: See Below General: Reports: No Symptoms HEENT: Reports: No Symptoms Pulmonary: Reports: No Symptoms Cardiovascular: Reports: No Symptoms Gastrointestinal: Reports: Abdominal Pain, Decreased Appetite Genitourinary: Reports: No Symptoms Musculoskeletal: Reports: No Symptoms Skin: Reports: No Symptoms Neurological: Reports: No Symptoms Hematologic/Lymphatic: Reports: No Symptoms Exam - Exam Exam: See Below - Vital Signs Vital Signs: Last Vital Signs Temp 36.9 C 08/30/19 16:37 Pulse 64 08/30/19 16:37 Resp 20 08/30/19 16:37 BP 112/78 08/30/19 16:37 Pulse Ox 97 08/30/19 16:37 Weight: 68.946 kg - Exam Quality Assessment: No: Supplemental Oxygen General: Alert, Oriented HEENT: Conjunctiva Clear, EOMI Neck: Supple Lungs: Clear to Auscultation, Normal Respiratory Effort Cardiovascular: Regular Rate, Regular Rhythm GI/Abdominal Exam: Soft, No Distention, Tender (in RLQ) Extremities: Normal Inspection, No Pedal Edema Peripheral Pulses: 2+: Dorsalis Pedis (L), Dorsalis Pedis (R) Skin: Warm, Dry, Intact Neurological: Cranial Nerves Intact Neuro Extensive - Mental Status: Normal Mood/Affect - Patient Data Lab Results Last 24 hrs: Laboratory Results - last 24 hr 08/30/19 08/30/19 08/30/19 Range/Units 16:55 16:55 17:00 WBC 11.96 H (3.98-10.04) K/mm3 RBC 5.02 (3.98-5.22) M/mm3 Hgb 15.3 D (11.2-15.7) gm/dl Hct 46.9 H (34.1-44.9) % MCV 93.4 (79.4-94.8) fl MCH 30.5 (25.6-32.2) pg MCHC 32.6 (32.2-35.5) g/dl RDW Std Deviation 45.3 (36.4-46.3) fL Plt Count 266 (182-369) K/mm3 MPV 9.9 (9.4-12.3) fl Neut % (Auto) 79.5 H (34.0-71.1) % Lymph % (Auto) 12.7 L (19.3-51.7) % [place] % (Auto) 5.8 (4.7-12.5) % Eos % (Auto) 1.6 (0.7-5.8) Baso % (Auto) 0.3 (0.1-1.2) % Neut # (Auto) 9.52 H (1.56-6.13) K/mm3 Lymph # (Auto) 1.52 (1.18-3.74) K/mm3 [place] # (Auto) 0.69 H (0.24-0.36) K/mm3 Eos # (Auto) 0.19 (0.04-0.36) K/mm3 Baso # (Auto) 0.03 (0.01-0.08) K/mm3 Manual Slide Review Normal smear Sodium 140 (136-145) mEq/L Potassium 3.9 (3.5-5.1) mEq/L Chloride 105 (98-107) mEq/L Carbon Dioxide 27 (21-32) mEq/L Anion Gap 11.9 (5-15) BUN 16 (7-18) mg/dL Creatinine 0.8 (0.55-1.02) mg/dL Est Cr Clr Drug Dosing 88.18 mL/min Estimated GFR (MDRD) > 60 (>60) mL/min BUN/Creatinine Ratio 20.0 H (14-18) Glucose 88 (74-106) mg/dL Calcium 9.7 (8.5-10.1) mg/dL Total Bilirubin 1.9 H (0.2-1.0) mg/dL AST 21 (15-37) U/L ALT 44 (14-59) U/L Alkaline Phosphatase 109 (46-116) U/L Total Protein 6.9 (6.4-8.2) g/dl Albumin 3.4 (3.4-5.0) g/dl Globulin 3.5 gm/dL Albumin/Globulin Ratio 1.0 (1-2) Urine Color Yellow (Yellow) Urine Appearance Clear (Clear) Urine pH 6.0 (5.0-8.0) Ur Specific [place] 1.020 (1.005-1.030) Urine Protein 1+ H (Negative) Urine Glucose (UA) Negative (Negative) Urine Ketones Negative (Negative) Urine Occult Blood 3+ H (Negative) Urine Nitrite Negative (Negative) Urine Bilirubin Negative (Negative) Urine Urobilinogen 0.2 (0.2-1.0) Ur Leukocyte Esterase 1+ H (Negative) Urine RBC 5-10 H (0-5) /hpf Urine WBC 10-20 H (0-5) /hpf Ur Squamous Epith Cells 20-30 H (0-5) /hpf Urine Bacteria Few (FEW) /hpf Urine Mucus Not seen (FEW) /hpf SARS-CoV-2 RNA (RT-PCR) (NEGATIVE) 08/30/19 Range/Units 18:40 WBC (3.98-10.04) K/mm3 RBC (3.98-5.22) M/mm3 Hgb (11.2-15.7) gm/dl Hct (34.1-44.9) % MCV (79.4-94.8) fl MCH (25.6-32.2) pg MCHC (32.2-35.5) g/dl RDW Std Deviation (36.4-46.3) fL Plt Count (182-369) K/mm3 MPV (9.4-12.3) fl Neut % (Auto) (34.0-71.1) % Lymph % (Auto) (19.3-51.7) % [place] % (Auto) (4.7-12.5) % Eos % (Auto) (0.7-5.8) Baso % (Auto) (0.1-1.2) % Neut # (Auto) (1.56-6.13) K/mm3 Lymph # (Auto) (1.18-3.74) K/mm3 [place] # (Auto) (0.24-0.36) K/mm3 Eos # (Auto) (0.04-0.36) K/mm3 Baso # (Auto) (0.01-0.08) K/mm3 Manual Slide Review Sodium (136-145) mEq/L Potassium (3.5-5.1) mEq/L Chloride (98-107) mEq/L Carbon Dioxide (21-32) mEq/L Anion Gap (5-15) BUN (7-18) mg/dL Creatinine (0.55-1.02) mg/dL Est Cr Clr Drug Dosing mL/min Estimated GFR (MDRD) (>60) mL/min BUN/Creatinine Ratio (14-18) Glucose (74-106) mg/dL Calcium (8.5-10.1) mg/dL Total Bilirubin (0.2-1.0) mg/dL AST (15-37) U/L ALT (14-59) U/L Alkaline Phosphatase (46-116) U/L Total Protein (6.4-8.2) g/dl Albumin (3.4-5.0) g/dl Globulin gm/dL Albumin/Globulin Ratio (1-2) Urine Color (Yellow) Urine Appearance (Clear) Urine pH (5.0-8.0) Ur Specific [place] (1.005-1.030) Urine Protein (Negative) Urine Glucose (UA) (Negative) Urine Ketones (Negative) Urine Occult Blood (Negative) Urine Nitrite (Negative) Urine Bilirubin (Negative) Urine Urobilinogen (0.2-1.0) Ur Leukocyte Esterase (Negative) Urine RBC (0-5) /hpf Urine WBC (0-5) /hpf Ur Squamous Epith Cells (0-5) /hpf Urine Bacteria (FEW) /hpf Urine Mucus (FEW) /hpf SARS-CoV-2 RNA (RT-PCR) Negative (NEGATIVE) Result Diagrams: 08/30/19 16:55 08/30/19 16:55 Sepsis Event Note - Evaluation Sepsis Screening Result: No Definite Risk - Focused Exam Vital Signs: Vital Signs Temp Pulse Resp BP Pulse Ox 08/30/19 16:37 36.9 C 64 20 112/78 97 Date Exam was Performed: 08/30/19 Time Exam was Performed: 19:45 *Q Meaningful Use (ADM) - VTE Risk Assess *Q Each Risk Factor Represents 1 Point: Age 41 - 59 years, Minor Surgery Planned, or , Less than 1 Month Total Score 1 Point Risk Factors: 3 - Problem List (1) Appendicitis SNOMED Code(s): 70999419 ICD Code: K37 - UNSPECIFIED APPENDICITIS Status: Acute Current Visit: Yes Qualifiers: Appendicitis type: acute appendicitis Acute appendicitis type: unspecified acute appendicitis type Qualified Code(s): K35.80 - Unspecified acute appendicitis Problem List Initiated/Reviewed/Updated: Yes Orders Last 24hrs: Active Orders 24 hr Category Date Time Status Patient Status [ADT] Routine ADT 08/30/19 18:50 Active Abdomen Pelvis wo Cont [CT] Stat Exams 08/30/19 16:47 Taken CULTURE URINE [RM] Stat Lab 08/30/19 17:00 Received Sodium Chloride 0.9% [Saline Flush] Med 08/30/19 16:47 Active 10 ml FLUSH ASDIRECTED PRN Saline Lock Insert [OM.PC] Stat Oth 08/30/19 16:46 Ordered Schedule Procedure [COMM] Urgent Oth 08/30/19 18:49 Ordered Medication Orders Sodium Chloride (Saline Flush) 10 ml FLUSH ASDIRECTED PRN PRN Reason: Keep Vein Open Last Admin: 08/30/19 17:07 Dose: 10 ml Documented by: ELÍAS Assessment/Plan Comment:: 44-year-old lady with acute appendicitis -Plan for laparoscopic appendectomy, possible open. Discussed risks of bleeding, infection, and injury to surrounding abdominal structures. Her written consent was obtained -N.p.o. with IV fluid resuscitation -We will perform COVID test prior to the OR -IV antibiotics with metronidazole and levofloxacin due to penicillin allergy -We will assess the need for in-hospital stay from intraoperative findings Anastasiya Barraza MD General Surgery
[2019-08-30] MEDS ORDERED: Ketorolac 30 MG/ML SDV ONE (20:15)
[2019-08-30] MEDS ORDERED: fentaNYL 100 MCG/2 ML SDV IVPUSH PRN (20:45)
[2019-08-30] MEDS ORDERED: HYDROmorphone 0.5 MG/0.5 ML Syringe IVPUSH PRN (20:45)
--- NOTE | 2019-08-30 20:47 | PCM.PRNOTE ---
- Free Text/Narrative Note: Operative Report Date of surgery: August 30, 2019 Preoperative diagnosis: acute appendicitis. Postoperative diagnosis: same Procedure performed: laparoscopic appendectomy Surgeon: Dr. Anastasiya Barraza Anesthesia: General Industrial Maintenance Mechanic: Bright Conde CRNA Estimated blood loss [5 mL] IV fluids: 1000 mL Urine output: 0 Drains and lines: None Findings: Acute appendicitis, not ruptured Pathology: Appendix Indications for procedure: The patient is a 44-year-old female who presented with findings of acute appendicitis. She was consented for laparoscopic appendectomy with possible conversion to open. We discussed risks of bleeding, infection, and damage to intra-abdominal structures. Her written consent was obtained Description of procedure: The patient was taken back to the operating room and placed in supine position on the operating table. SCD boots were in place and functional prior to the start of the procedure. Preoperative antibiotics were administered: IV metronidazole and levofloxacin due to her penicillin allergy. The patient had successful induction of general anesthesia and was intubated without difficulty. Pt was then prepped and draped in standard surgical fashion and a timeout was performed. We began by making a 15 mm incision in the infraumbilical skin and deepened down to level of the fascia which was then grasped and incised sharply. We entered the peritoneum and then placed stay sutures of 0 Vicryl on the fascial edges. A 12 mm Workman port was then placed into the umbilicus and the balloon was inflated. The abdomen was insufflated to 15 mmHg a 5 mm camera was inserted. There was no evidence of any injury created from entry into the abdomen. A TA P block was performed using mixed 1% lidocaine with epinephrine and 0.5% bupivacaine with epinephrine . We then proceeded to place a 5 mm port under direct visualization in the suprapubic midline and an additional 5mm port in the left lower quadrant. The patient was then positioned in Trendelenburg with right side elevated and we proceeded to mobilize the appendix. The appendix did appear mildly injected and dilated at the tip. The mesoappendix dissected from the appendix. The appendix was then taken with a tissue staple load. The mesoappendix was then taken with a vascular staple load. The specimen was in place in the Endo Catch bag. We then inspected and blotted up any blood in the area. There was no active bleeding at the end of this case. The abdomen was then desufflated and the umbilical fascia closed with 0 Vicryl sutures and the stay sutures were tied, effectively closing the umbilical port site. The skin was then reapproximated at all port sites using a 4-0 Monocryl subcutaneous stitch and covered with Dermabond surgical glue. The patient tolerated the procedure. She was extubated and transported to the PACU in stable condition. All sponge and needle counts were correct. I was present and scrubbed for the entirety of the procedure. Anastasiya Barraza MD General Surgery
--- NOTE | 2019-08-30 20:49 | PCM.OPNOTE ---
- General Post-Op/Procedure Note Date of Surgery/Procedure: 08/30/19 Operative Procedure(s): Laparoscopic appendectomy Findings: Acute appendicitis Pre Op Diagnosis: Acute appendicitis Post-Op Diagnosis: Same Anesthesia Technique: General ET Tube Primary Surgeon: Anastasiya Barraza Anesthesia Provider: Bright Conde Pathology: appendix Fluid Replacement, Intraop: 1,000 Output, Urine Amount: 0 EBL in mLs: 5 Complications: none apparent Condition: Good
--- NOTE | 2019-08-30 20:59 | PCM.POSTAN ---
POST ANESTHESIA ASSESSMENT - MENTAL STATUS Mental Status: Alert, Oriented - VITAL SIGNS Vital Signs: Last Vital Signs Temp 99.2 F 08/30/19 20:46 Pulse 87 08/30/19 20:46 Resp 14 08/30/19 20:46 BP 125/74 08/30/19 20:46 Pulse Ox 96 08/30/19 20:46 - RESPIRATORY Respiratory Status: Respiratory Rate WNL, Airway Patent, O2 Saturation Stable - CARDIOVASCULAR CV Status: Pulse Rate WNL, Blood Pressure Stable - GASTROINTESTINAL GI Status: No Symptoms - PAIN Pain Score: 0 - POST OP HYDRATION Hydration Status: Adequate & Stable
--- NOTE | 2019-08-30 21:18 | PCM48HPAN ---
Post Anesthesia Note - EVALUATION WITHIN 48HRS OF ANESTHETIC Vital Signs in Normal Range: Yes Patient Participated in Evaluation: Yes Respiratory Function Stable: Yes Airway Patent: Yes Cardiovascular Function Stable: Yes Hydration Status Stable: Yes Pain Control Satisfactory: Yes Nausea and Vomiting Control Satisfactory: Yes Mental Status Recovered: Yes Vital Signs: Last Vital Signs Temp 98.4 F 08/30/19 21:15 Pulse 66 08/30/19 21:15 Resp 15 08/30/19 21:15 BP 117/76 08/30/19 21:15 Pulse Ox 95 08/30/19 21:15 - COMMENTS/OBSERVATIONS Free Text/Narrative:: No anesthesia complications observed. Patient will be discharged home tonight.
--- NOTE | 2019-08-31 09:22 | CT ---
CT abdomen and pelvis Technique: Multiple axial sections were obtained from above the dome of the diaphragm inferiorly through the pubic symphysis. Intravenous and oral contrast not utilized. Findings: Kidneys show no abnormal calcifications. No ureteral dilatation or ureteral calcifications are seen. Other findings: Visualized lung bases show nothing acute. Several low density lesions are noted within the right and left lobes of the liver with larger abnormalities having Hounsfield unit measurements of cysts. These findings measure less than 2 cm in size. Pancreas shows no focal abnormality. Aorta shows no aneurysm. Gallbladder contains no calcified gallstones. No retroperitoneal adenopathy or mesenteric abnormalities are seen. No pelvic mass or adenopathy is seen. Appendix is mildly enlarged measuring up to 1.2 cm. Appendicolith is who noted within the proximal appendix. No significant inflammatory change is appreciated around the appendix. No free fluid or inflammatory change is seen. Uterus is generous in size compatible with recent . Bone window settings were reviewed which appear within normal limits for the patient's age. Impression: 1. No renal calculi, ureteral dilatation or ureteral stone is seen. 2. Mildly prominent size of the appendix with an appendicolith seen proximally. No inflammatory change is seen. Chronic appendicitis is possible, this may also represent normal variant. No inflammatory change is seen to indicate definite acute appendicitis. Please correlate with the patient's laboratory and clinical findings. 3. Other findings believed to be nonacute as described above. Diagnostic code #3 This report was dictated in MDT I agree with preliminary report from [facility], finalized on 08/30/19, 7:08 PM Central Daylight Time
== END 2019-08-30 22:15 | disposition home or self-care (01) ==
LOC: JD.ED 16:06 → JD.SDS 18:38
PROVIDERS: ATTEND Surgery
DX: K35.33 Acute appendicitis with perforation, localized peritonitis, and gangrene, with abscess (principal); Z88.0 Allergy status to penicillin
CPT/HCPCS: 36415; 44970; 74176; 80053; 81001; 85025; 87086; 87635; 96365; 96368; 99285; J0330; J1100; J1885; J1956; J2250; J2405; J2704; J2710; J3010; J3490; 00840; U0002